=== PATIENT | male | born 1965 ===

== ENCOUNTER 2018-09-09 16:06 | Emergency (ER) | payer MEDICARE, OTHER ==
[2018-09-09 16:07] VITALS: BMI 36.9
[2018-09-09 16:17] VITALS: TEMP 98.6
--- NOTE | 2018-09-09 18:02 | ED PDOC ---
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 Pt states he has had this pain much longer but it has recently gotten worse. Occasionally his left knee hurts as well. Pain is worst in the morning or after sitting for long periods of time, exacerbated by repetitive motion. Pt currently takes ibuprofen at home with mild relief. He was seeing a pain management doctor until recently because they "kicked him out of the office". Pt had nerve stimulation done approx 1 month ago and is worried about a small area of erythema at the needle site, at the lateral joint line of knee. States sometimes when he squeezes it pus comes out. Denies fevers, chills, numbness, paresthesias, weakness, calf pain, calf tenderness or swelling. Past Medical History Reviewed: Historical Data, Nursing Documentation, Vital Signs Vital Signs: Last Vital Signs Temp 98.6 F 09/09/18 16:15 Pulse 90 09/09/18 16:15 Resp 16 09/09/18 16:15 BP 136/79 09/09/18 16:15 Pulse Ox 99 09/09/18 16:15 - Medical History PMH: Arthritis (KNEES; HANDS), Back Problems, Bipolar Disorder (denies), Depression (denies), HTN (NOT TAKING MEDS AT PRESENT), Migraine, Chronic Pain Denies: Colonic Polyps, Fractures, Chronic Kidney Disease - Surgical History Surgical History: Endoscopy - Family History Family History: States: Unknown Family Hx - Immunization History Hx Tetanus Toxoid Vaccination: No Hx Influenza Vaccination: No Hx Pneumococcal Vaccination: No - Home Medications Home Medications: Ambulatory Orders Medication Instructions Recorded Naproxen [Naprosyn] 500 mg PO BID 03/30/18 Sulfamethoxazole/Trimethoprim 1 tab PO Q12H #14 tab 09/09/18 [Bactrim DS 800 mg-160 mg] - Allergies Allergies/Adverse Reactions: Allergies Allergy/AdvReac Type Severity Reaction Status Date / Time ketorolac [From Toradol] Allergy SWELLING Verified 09/09/18 16:14 Review of Systems ROS Statement: Except As Marked, All Systems Reviewed And Found Negative Constitutional: Negative for: Fever, Chills Cardiovascular: Negative for: Chest Pain Respiratory: Negative for: Shortness of Breath Gastrointestinal: Negative for: Nausea, Vomiting, Abdominal Pain Genitourinary Male: Negative for: Dysuria Musculoskeletal: Positive for: Leg Pain (right knee) Skin: Negative for: Rash, Bruising Neurological: Negative for: Weakness, Numbness, Dizziness Physical Exam - Reviewed Nursing Documentation Reviewed: Yes Vital Signs Reviewed: Yes - Physical Exam Appears: Positive for: Well, Non-toxic, No Acute Distress Head Exam: Positive for: ATRAUMATIC, NORMAL INSPECTION, NORMOCEPHALIC Skin: Positive for: Normal Color, Warm, DRY Eye Exam: Positive for: EOMI, Normal appearance, PERRL ENT: Positive for: Normal ENT Inspection Neck: Positive for: Normal, Painless ROM Cardiovascular/Chest: Positive for: Regular Rate, Rhythm Respiratory: Positive for: CNT, Normal Breath Sounds Pulses-Dorsalis Pedis (L): 2+ Pulses-Dorsalis Pedis (R): 2+ Back: Positive for: Normal Inspection Extremity: Positive for: Normal ROM (crepitus palpable with ROM), Tenderness (medial and lateral joint line of right knee), Capillary Refill (<2s), Other (small 2met7lj area of erythema on right knee lateral joint line with central scab, mild warmth and tenderness to touch, no drainage/induration/fluctuance). Negative for: Pedal Edema, Calf Tenderness, Deformity, Swelling Neurologic/Psych: Positive for: Alert, Oriented, Gait (steady) - ECG O2 Sat by Pulse Oximetry: 99 Medical Decision Making Medical Decision Making: Initial Plan: * Right Knee XR * Tylenol Pt reports decreased pain after medication. Right Knee XR: Normal Plan of care discussed with patient, and strict instructions given regarding prescriptions, importance of follow up, and signs to return to Emergency Department, to include worsening redness/swelling, fever, chills, abdominal pain or any other new/worsening symptoms. Patient verbalizes understanding of discussion. Patient A&Ox3, ambulating with steady gait, stable for discharge home. Impression: Knee Pain Plan: * Bactrim * César bandage * Followup with primary doctor/clinic within 2 days * Return to ER for new/worsening symptoms Disposition - Clinical Impression Clinical Impression: Knee pain, Folliculitis - Disposition Referrals: Harrison Gandhi III, MD [Staff Provider] - Disposition Time: 19:20 Condition: IMPROVED Additional Instructions: Take antibiotic every 12 hours for 7 days Tylenol for knee pain Followup with orthopedic doctor for persistent pain Followup with primary/clinic within 2 days Return to ER for new/worsening symptoms Prescriptions: Sulfamethoxazole/Trimethoprim [Bactrim DS 800 mg-160 mg] 1 tab PO Q12H #14 tab Instructions: Folliculitis (DC), Chronic Knee Pain Forms: [facility] [employer] [facility] (Algerian), [facility] School/Work Excuse
[2018-09-09 19:51] VITALS: BP 133/77; PULSE 79; RESP 18
--- NOTE | 2018-09-10 11:42 | RAD ---
Date of service: 09/09/2018 PROCEDURE: Right Knee Radiographs. HISTORY: knee pain COMPARISON: None. FINDINGS: BONES: No acute fracture. JOINTS: Normal. No osteoarthritis. JOINT EFFUSION: None. OTHER FINDINGS: None. IMPRESSION: No significant or acute findings to account for/ related to the clinical presentation. Concordant results with the preliminary interpretation rendered by the emergency department physician procedure.
[2018-09-11 02:48] VITALS: O2SAT 99
== END 2018-09-09 19:50 | disposition home or self-care (01) ==
LOC: H.ER 16:06
DX: M25.561 Pain in right knee (principal); L73.9 Follicular disorder, unspecified; I10 Essential (primary) hypertension